=== PATIENT | female | born 2000 | race Caucasian/White ===

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

== ENCOUNTER 2021-09-16 19:51 | Emergency (ER) | payer OTHER ==
[~2021-09-16] VITALS: Ht 152.4 cm; Wt 64.0 kg
[2021-09-16] MEDS ORDERED: ATOMOXETINE HCL40 MG PO (20:28)
== END 2021-09-16 21:39 | disposition home or self-care (01) ==
LOC: ED 19:51
DX: T65.891A Toxic effect of other specified substances, accidental (unintentional), initial encounter (principal); T26.91XA Corrosion of right eye and adnexa, part unspecified, initial encounter; Z88.8 Allergy status to other drugs, medicaments and biological substances; Z79.899 Other long term (current) drug therapy; Y93.E8 Activity, other personal hygiene
CPT/HCPCS: 99283

== ENCOUNTER 2021-12-29 14:34 | Emergency (ER) | payer OTHER ==
[~2021-12-29] VITALS: Ht 152.4 cm; Wt 64.0 kg
[~2021-12-29 14:34] MED LIST changes: +ATOMOXETINE HCL40 MG PO
[2021-12-29] MEDS ORDERED: AUGMENTIN 875-1 EACH PO (16:58)
[2021-12-29] MEDS ORDERED: HYDROCODON-ACE1 EAC8 PO (16:58)
[2021-12-29] MEDS ORDERED: PREDNISONE20 MG PO (16:58)
== END 2021-12-29 17:23 | disposition home or self-care (01) ==
LOC: ED 14:34
DX: J03.90 Acute tonsillitis, unspecified (principal); Z88.8 Allergy status to other drugs, medicaments and biological substances; Z79.899 Other long term (current) drug therapy
CPT/HCPCS: 36415; 80048; 85025; 96365; 96375; 99283-25; J0696; J1100; J1885; J7030

== ENCOUNTER 2022-02-26 05:55 | Day surgery (SDC) | payer OTHER ==
--- NOTE | 2022-02-24 11:24 | NUR ---
PT WAS TOLD THAT SHE DID NOT NEED TO COME AND COMPLETE A PRE-ADMIT APPOINTMENT DUE TO SHE HAD LABS COMPLETED ON 02-23-22. PT WAS WORKING WHEN CALLED.
[~2022-02-26] VITALS: Ht 152.4 cm; Wt 64.0 kg
[~2022-02-26 05:55] MED LIST changes: +AUGMENTIN 875-1 EACH PO; +HYDROCODON-ACE1 EAC8 PO; +PREDNISONE20 MG PO; +STRATTERA10 MG PO
--- NOTE | 2022-02-26 06:24 | NUR ---
DR MORRIS CALLED FOR TEMP 100.5 ENLARGED TONSILS WITH APPEARANCE OF PUS ON LEFT ONE. STATES OK TO PROCEED AND ORDERED ABX PREOP SEE ORDER.
--- NOTE | 2022-02-26 08:24 | NUR ---
02/26/22 0824 Carrie Prescott 0813- PT ARRIVES TO PACU COUGHING FREQUENTLY. PT REACTIVE TO STIMULI. PT UPDATED THAT HER SURGERY IS OVER. PT CONTINUES TO COUGH. LUNG ASHER ARE CLEAR THROUGHOUT. OXYGEN SAT HIGH 90'S TO 100% ON 6L VIA MASK. PT LAYING ON HER RIGHT SIDE. 0818- OXYGEN TITRATED OFF.
--- NOTE | 2022-02-26 08:50 | NUR ---
PATIENT REPORT RECIEVED FROM LORENA CORDOVA. PATIENT BACK FROM PACU. PATIENT ASSESSMENT COMPLETE. VITAL SIGNS WNL AND DOCUMENTED. BREATHING EQUAL AND UNLABORED. NO SIGNS OF BLEEDING AT SURGICAL SITE. PATIENT COMPLAINS OF 4/10 PAIN DENIES THE NEED FOR PAIN MEDICATION. PATIENT IS DRINKING WATER, EATING PUDDING AND SITTING UP IN BED. MOTHER AT BEDSIDE. CALL LIGHT WITHIN REACH NO FUTHER NEEDS AND NO QUESTIONS AT THIS TIME.
--- NOTE | 2022-02-26 09:39 | NUR ---
PATIENT ASSESSMENT COMPLETE. PATIENT IS ALERT AND ORIENTED. BREATHING EQUAL AND UNLABORED. VITAL SIGNS WNL AND DOCUMENTED. PATIENT COMPLAINS OF 4/10 PAIN THROBBING AT SURGICAL SITE. PRN ELIXIR GIVEN 15 MLS. NO BLEEDING AT SURGICAL SITE. PATIENT DRINKING WATER. EATING PUDDING AND WAS ABLE TO VOID. NO QUESTIONS. CALL LIGHT WITHIN REACH NO FUTHER NEEDS. MOTHER PRESENT IN ROOM.
--- NOTE | 2022-02-26 09:55 | NUR ---
PATIENT MET DISCHARGE CRITERIA. PATIENT WAS ABLE TO DRESS SELF AND AMBULATE WELL. IV DISCHARGED WNL. PATIENT STATED PAIN MEDICATION ALREADY TAKEN TO PHARMACY. OTHER PERSCRIPTION GIVEN TO MOTHER. PATIENT WAS WHEELED OUT OF FACILITY TO MOTHERS CAR.
--- NOTE | 2022-02-26 11:27 | OR ---
[facility] [address] [place], [place] [address] Signed DATE OF OPERATION: 02/26/2022 SURGEON: Ariel Smiley MD PREOPERATIVE DIAGNOSES: Chronic tonsillitis, tonsillith and recurrent acute tonsillitis. POSTOPERATIVE DIAGNOSES: Chronic tonsillitis, tonsillith and recurrent acute tonsillitis. PROCEDURE: Tonsillectomy greater than 12 years of age. INDICATIONS: This 21-year-old female for 10 years or more, has had a problem with tonsil stones or tonsillith which formed causing pain, some discomfort, lymphadenitis and halitosis. The patient also has acute tonsillitis characterized by fever and prostration and sore throat. On examination, the patient had 4+ tonsillar hypertrophy. The medical history was consistent with the physical exam. The tonsil stones were lifelong problem, not treatable with antibiotics alone, hence the need for the procedure. PROCEDURE IN DETAIL: The patient was placed in the supine position, had an orotracheal intubation, was placed under general anesthesia. The McIvor mouth gag was inserted in the oral cavity exposing the right tonsil. It was noted she had exudate on the left tonsil and the tonsils were tightly pressed against each other. With a Bovie cautery unit, the tonsillectomy was performed. The setting was on 25 for cautery. A subcapsular dissection was done with the tip of the cautery using short bursts of energy and all was going from inferior to superior, allowing for adequate thermal relaxation. It was pretty much a bloodless dissection except one small bleeder which was readily cauterized. Bismuth was placed into the tonsillar fossa to help with postop hemostasis and about 3.5 mL of 0.25% Marcaine 1:200,000 epinephrine were injected into the peritonsillar region to help with postop pain. Intravascular injection was avoided. Mouth gag was removed for at least 60 seconds, reinserted at this time exposing the left tonsil. It was removed in similar fashion. More Bismuth and another 4 mL of Marcaine were injected and the patient was awakened, extubated and sent to recovery room in good condition. ESTIMATED BLOOD LOSS: Less than 5 mL. Electronically Signed By: ARIEL SMILEY MD 02/26/22 1127 PATIENT NAME: FITO HERNANDEZ OPERATIVE REPORT DATE OF : 99 REPORT #: [id number] PHYSICIAN: ARIEL SMILEY MD PCP: FREDRICK MADRID PA-C REPORT IS CONFIDENTIAL AND NOT TO BE RELEASED WITHOUT AUTHORIZATION [facility] [address] [place], [place] [address] Signed There were no complications. The patient will be placed on antibiotics now in the hospital and at home. MD TOSHA Morfin/JEY /[id number] Copies: ~ Electronically Signed By: ARIEL SMILEY MD 02/26/22 1127 PATIENT NAME: FITO HERNANDEZ OPERATIVE REPORT DATE OF : 99 REPORT #: [id number] PHYSICIAN: ARIEL SMILEY MD PCP: FREDRICK MADRID PA-C REPORT IS CONFIDENTIAL AND NOT TO BE RELEASED WITHOUT AUTHORIZATION
--- NOTE | 2022-03-02 13:36 | PATH ---
[facility] [address] [place], [place] [address] Signed SPECIMEN(S): A RIGHT TONSIL SPECIMEN(S): B LEFT TONSIL SPECIMEN SOURCE: A. RIGHT TONSIL B. LEFT TONSIL CLINICAL HISTORY: Chronic tonsillitis. Tonsillectomy. FINAL PATHOLOGIC DIAGNOSIS: A. Tonsil, right, tonsillectomy: - Reactive follicular lymphoid hyperplasia. B. Tonsil, left, tonsillectomy: - Reactive follicular lymphoid hyperplasia. NAL:cml:C2NR MICROSCOPIC EXAMINATION: Histologic sections of all submitted blocks are examined by light microscopy. These findings, together with the gross examination, support the pathologic diagnosis. GROSS DESCRIPTION: The specimen, labeled "Luiza," is received in formalin and consists of two pink-mart tonsils (left: 4.2 x 3.2 x 2.6 cm, right: 4.6 x 2.7 x 2.7 cm). The right tonsil is inked blue and both tonsils are serially sectioned to reveal a pink-mart to slightly hemorrhagic and convoluted cut surface. Geophysical Computer sections of each tonsil are submitted in cassette (A1). KD (under the direct supervision of a pathologist) The Gross Description was prepared using a voice recognition system. The report was reviewed for accuracy; however, sound-alike word errors, addition and/or deletions may occur. If there is any question about this report, please contact Client Services. PERFORMING LABORATORY: The technical component was performed by [employer], [address] [place] [id number] (Hospital Ward Clerk: Monica Jones MD; CLIA# [id number]). [facility] [address] [address] (CLIA# [id number]). PATIENT NAME: FITO HERNANDEZ PATHOLOGY DATE OF : 99 REPORT #: [id number] PHYSICIAN: [facility] PCP: FREDRICK MADRID PA-C REPORT IS CONFIDENTIAL AND NOT TO BE RELEASED WITHOUT AUTHORIZATION [address] [place] [address] Signed Diagnostician: Mira Arias MD Pathologist Electronically Signed 03/02/2022 Copies: ~ PATIENT NAME: FITO HERNANDEZ PATHOLOGY DATE OF : 99 REPORT #: [id number] PHYSICIAN: [facility] PCP: FREDRICK MADRID PA-C REPORT IS CONFIDENTIAL AND NOT TO BE RELEASED WITHOUT AUTHORIZATION
== END 2022-02-26 09:55 | disposition home or self-care (01) ==
LOC: DS 05:55 → OPS 05:55 → DS 07:30 → OPS 09:55
PROVIDERS: ATTEND Otolaryngology
PROC: 0CTPXZZ Resection of Tonsils, External Approach (ICD-10-PCS; principal; 2022-02-26 07:30)
DX: J03.91 Acute recurrent tonsillitis, unspecified (principal); J35.01 Chronic tonsillitis; Z88.1 Allergy status to other antibiotic agents
CPT/HCPCS: 00170; 84703; A9270; J0131; J1100; J2405; J2704; J3010; J7121

== ENCOUNTER 2023-07-02 00:02 | Inpatient (IN) | payer OTHER ==
[~2023-07-02] VITALS: Ht 157.5 cm; Wt 94.3 kg
--- OUTSIDE RECORDS SUMMARY | ~2023-07-02 | XMS | Continuity of Care Document ---
Demographics + + + | Address | [address] | | | [place] [address] | + + + | Preferred Language | Unknown | + + + | Marital Status | Never | + + + | Buddhism Affiliation | Unknown | + + + | Race | White | + + + | Ethnic Group | Unknown | + + + Author + + + | Author | [facility] | + + + | Organization | [facility] | + + + | Address | [address] | | | [place] [address] | + + + | Phone | | + + + Care Team Providers + + + + | Care Import Export Coordinator Name | Role | Phone | + + + + Unavailable | Unavailable | + + + + Allergies and Intolerances + + + + + + | date | description | facility | reaction | severity | + + + + + + | (no date) | oxybutynin | [facility] | (no reaction) | (no severity) | + + + + + + | (no date) | ertapenem | [facility] | (no reaction) | (no severity) | + + + + + + Encounters No information. Functional Status No information. Immunizations No information. Medications No information. Problems + + + + | date | description | facility | + + + + | 2021-12-29 14:35 | ACUTE PHARYNGITIS, | [facility] | | | UNSPECIFIED | | + + + + | 2021-12-29 14:35 | ACUTE TONSILLITIS, | [facility] | | | UNSPECIFIED | | + + + + | 2021-12-29 14:35 | OTHER [facility] (CURRENT) | [facility] | | | DRUG THERAPY | | + + + + | 2021-12-29 14:35 | ALLERGY STATUS TO OTH | [facility] | | | DRUG/MEDS/BIOL SUBST STATUS | | | | | | + + + + | 2022-11-05 12:52 | ENCOUNTER FOR SUPRVSN OF | [facility] | | | NORMAL , FIRST | | | | TRIMESTER | | + + + + | 2022-11-05 12:52 | LESS THAN 8 WEEKS | [facility] | | | GESTATION OF | | + + + + | 2023-01-15 11:00 | PERSONS ENCOUNTERING | [facility] | | | HEALTH SERVICES IN | | + + + + | 2023-02-10 09:47 | CONTACT W AND EXPOSURE TO | [facility] | | | INFECT W A SEXL MODE OF | | | | TRANSMISS | | + + + + | 2023-02-10 09:47 | PERSONS ENCOUNTERING | [facility] | | | HEALTH SERVICES IN | | + + + + | 2023-03-15 10:32 | CARDIAC ARRHYTHMIA, | [facility] | | | UNSPECIFIED | | + + + + | 2023-03-15 10:32 | DISEASES OF THE CIRC SYS | [facility] | | | COMP , SECOND TR | | + + + + | 2023-03-15 10:32 | Syncope and collapse | [facility] | + + + + | 2023-04-03 13:50 | ENCNTR FOR SUPRVSN OF | [facility] | | | NORMAL , UNSP, | | | | UNSP TRIMESTER | | + + + + | 2023-04-03 13:50 | ENCNTR FOR SUPRVSN OF | [facility] | | | NORMAL PREG, UNSP, THIRD | | | | TRI | | + + + + | 2023-04-03 13:50 | 29 WEEKS GESTATION OF | [facility] | | | | | + + + + | 2023-05-03 13:45 | UNSPECIFIED MATERNAL | [facility] | | | HYPERTENSION, THIRD | | | | TRIMESTER | | + + + + | 2023-05-03 13:45 | UNSPECIFIED MATERNAL | [facility] | | | HYPERTENSION, UNSPECIFIED | | | | TRIMESTER | | + + + + | 2023-05-03 13:45 | 32 WEEKS GESTATION OF | [facility] | | | | | + + + + | 2023-05-05 15:31 | UNSPECIFIED MATERNAL | [facility] | | | HYPERTENSION, THIRD | | | | TRIMESTER | | + + + + | 2023-05-05 15:31 | UNSPECIFIED MATERNAL | [facility] | | | HYPERTENSION, UNSPECIFIED | | | | TRIMESTER | | + + + + | 2023-05-05 15:31 | 32 WEEKS GESTATION OF | [facility] | | | | | + + + + | 2023-05-27 19:46 | FALSE LABOR BEFORE 37 | [facility] | | | COMPLETED WEEKS OF GEST, | | | | THIRD TRI | | + + + + | 2023-05-27 19:46 | 35 WEEKS GESTATION OF | [facility] | | | | | + + + + | 2023-06-17 16:42 | ENCNTR FOR SUPRVSN OF | [facility] | | | NORMAL PREG, UNSP, THIRD | | | | TRIMESTER | | + + + + | 2023-06-17 16:42 | 38 WEEKS GESTATION OF | [facility] | | | | | + + + + | 2023-06-21 11:11 | MATERN CARE FOR ABNLT FETL | [facility] | | | HRT RATE OR RHYM, 3RD T | | + + + + | 2023-06-21 11:11 | NAUSEA WITH VOMITING, | [facility] | | | UNSPECIFIED | | + + + + | 2023-06-21 11:11 | DIARRHEA, UNSPECIFIED | [facility] | + + + + | 2023-06-21 11:11 | 39 WEEKS GESTATION OF | [facility] | | | | | + + + + | 2023-06-24 16:51 | UNSPECIFIED MATERNAL | [facility] | | | HYPERTENSION, THIRD | | | | TRIMESTER | | + + + + | 2023-06-24 16:51 | 39 WEEKS GESTATION OF | [facility] | | | | | + + + + Procedures No information. Results/Labs No information. Social History No information. Vital Signs No information."
[2023-07-02 06:58] VITALS: BP 128/64
--- NOTE | 2023-07-02 12:25 | PR ---
[facility] [address] [facility] [place], [place] [address] Signed Progress Notes IP Datetime Report Generated by CPN: 07/02/2023 12:25 PROGRESS NOTES: [id number] Impression: Normal Progression of Labor; Reassuring Heart Rate Plan: Continue Present Management; Anesthesia Consult VITAL SIGNS: [id number] Vital Signs: Reviewed; Within Normal Limits EXAM: [id number] Dilatation: 5.0 Effacement: 90 Station: -2 Contractions: q1-4 min by palpation, tracing poorly MEMBRANES: [id number] Membranes Status: Intact Comments: Anesthesia replacing epidural. Anticipate AROM once comfortable with epidural. FETUS A: [id number] FHR Baseline: 135 Variability: Moderate 6-25bpm Accelerations: 15X15 Decelerations: None FHR Category: Category I Presentation: Vertex Comments on Fetus A: No evidence of acidemia FETUS B: [id number] Signing Physician: Suzanne Henley DO Copies: ~ *Electronically Signed* 07/02/23 1225 SUZANNE HENLEY DO PATIENT NAME: FITO HERNANDEZ PROGRESS NOTE DATE OF : 99 PHYSICIAN: SUZANNE HENLEY DO RPT #: [id number] REPORT IS CONFIDENTIAL AND NOT TO BE RELEASED WITHOUT AUTHORIZATION
--- NOTE | 2023-07-03 09:10 | PR ---
[facility] [address] [facility] [place], [place] [address] Signed PP Progress Notes Datetime Report Generated by CPN: 07/03/2023 09:09 SUBJECTIVE: [id number] Pain: Within Normal Limits Nausea/Vomiting: Denies Vital Signs: [id number] Vital Signs: Reviewed Notable Details: intermittent elevated BP, generally borderline hypotensive Cardiovascular: Normal Respiratory: Normal Abdomen/Uterus: Normal Lochia: Normal Extremities: Normal Progress: Not Applicable Exam Comments: NAD, sitting up in bed holding baby RRR No dyspnea/ retractions Abd SNTND, FFBU Ext with trace edema, neg Zahira's BL IMPRESSION/PLAN/PROCEDURES: [id number] Impression: Normal Progression Plan: Continue Present Management Procedures: None Progress Notes: PPD#1 s/p complicated by prolonged second stage -progressing well : ambulating, voiding, tolerating regular diet, pain well controlled with orals, lochia light. -anticipate DC to home tomorrow -bottlefeeding baby, planning IUD for contraception Signing Physician: Suzanne Henley DO Copies: ~ *Electronically Signed* 07/03/23908 SUZANNE HENLEY DO PATIENT NAME: FITO HERNANDEZ PROGRESS NOTE DATE OF : 99 PHYSICIAN: SUZANNE HENLEY #: [id number] REPORT IS CONFIDENTIAL AND NOT TO BE RELEASED WITHOUT AUTHORIZATION
--- NOTE | 2023-07-04 07:16 | PR ---
[facility] [address] [facility] [place], [place] [address] Signed PP Progress Notes Datetime Report Generated by CPN: 07/04/2023 07:16 SUBJECTIVE: [id number] Pain: Within Normal Limits Nausea/Vomiting: Denies Flatus: Yes Bowel Movement: No Vital Signs: [id number] Vital Signs: Reviewed Notable Details: intermittent elevated BP, generally borderline hypotensive Cardiovascular: Normal Respiratory: Normal Abdomen/Uterus: Normal Lochia: Normal Breasts: Normal Extremities: Normal Progress: Not Applicable Exam Comments: NAD sitting up in bed RRR No dyspnea/ retractions Abd SNTND FFBU Ext: 1+ BLLE pitting edema, neg Zahira's BL IMPRESSION/PLAN/PROCEDURES: [id number] Impression: Normal Progression Plan: Continue Present Management; Discharge Procedures: None Progress Notes: PPD#2 s/p -progressing well : ambulating, voiding, tolerating regular diet. +Flatus, no BM yet, lochia light -bottlefeeding baby, planning IUD for contraception -denies headaches, vision changes, RUQ pain -recheck BP prior to DC - if elevated, PreE labs prior to DC. Anticipate DC to home today pending BP control Signing Physician: Suzanne Henley DO Copies: *Electronically Signed* 07/04/23 0716 SUZANNE HENLEY DO PATIENT NAME: FITO HERNANDEZ PROGRESS NOTE DATE OF : 99 PHYSICIAN: SUZANNE HENLEY DO RPT #: [id number] REPORT IS CONFIDENTIAL AND NOT TO BE RELEASED WITHOUT AUTHORIZATION [address], [place] [address] Signed ~ *Electronically Signed* 07/04/23 07 SUZANNE HENLEY DO PATIENT NAME: FITO HERNANDEZ PROGRESS NOTE DATE OF : 99 PHYSICIAN: SUZANNE HENLEY DO RPT #: [id number] REPORT IS CONFIDENTIAL AND NOT TO BE RELEASED WITHOUT AUTHORIZATION
== END 2023-07-04 11:55 | disposition home or self-care (01) | DRG 807 ==
LOC: FBC 00:02
PROVIDERS: ADMIT Obstetrics & Gynecology; ATTEND Obstetrics & Gynecology
PROC: 10907ZC Drainage of Amniotic Fluid, Therapeutic from Products of Conception, Via Natural or Artificial Opening (ICD-10-PCS; principal; 2023-07-02)
PROC: 10E0XZZ Delivery of Products of Conception, External Approach (ICD-10-PCS; 2023-07-02)
PROC: 0KQM0ZZ Repair Perineum Muscle, Open Approach (ICD-10-PCS; 2023-07-02)
PROC: 00HU33Z Insertion of Infusion Device into Spinal Canal, Percutaneous Approach (ICD-10-PCS; 2023-07-02)
PROC: 3E0R3BZ Introduction of Anesthetic Agent into Spinal Canal, Percutaneous Approach (ICD-10-PCS; 2023-07-02)
PROC: 3E0P7VZ Introduction of Hormone into Female Reproductive, Via Natural or Artificial Opening (ICD-10-PCS; 2023-07-02)
DX: O48.0 Post-term pregnancy (principal); Z37.0 Single live birth; Z67.10 Type A blood, Rh positive; O99.344 Other mental disorders complicating childbirth; F90.9 Attention-deficit hyperactivity disorder, unspecified type; F43.10 Post-traumatic stress disorder, unspecified; O70.1 Second degree perineal laceration during delivery; Z3A.40 40 weeks gestation of pregnancy; Z87.891 Personal history of nicotine dependence; Z90.89 Acquired absence of other organs; Z88.1 Allergy status to other antibiotic agents; Z79.899 Other long term (current) drug therapy
CPT/HCPCS: 36415; 80053; 83615; 84550; 85027; 86850; 86900; 86901; A9270; J2405; J2590; J2795

== ENCOUNTER 2024-11-02 19:25 | Emergency (ER) | payer OTHER ==
[~2024-11-02] VITALS: Ht 152.4 cm; Wt 62.7 kg
[2024-11-02] MEDS ORDERED: FLUOXETINE HCL20 MG PO (20:21)
[2024-11-02] MEDS ORDERED: DEXTROAMP-AMPHE10 MG PO (20:21)
[2024-11-02] MEDS ORDERED: LACTULOSE10 GM/152 PO (20:39)
[2024-11-02] MEDS ORDERED: MAGNESIUM CITRATE 300 ML BTL PO ONE (20:45)
[2024-11-02] MEDS ORDERED: LACTULOSE 20 GM/30 ML CUP PO ONE (20:45)
[2024-11-02 20:54] VITALS: BP 135/77
== END 2024-11-02 20:58 | disposition home or self-care (01) ==
LOC: ED 19:25
DX: K59.00 Constipation, unspecified (principal); Z88.8 Allergy status to other drugs, medicaments and biological substances; Z79.899 Other long term (current) drug therapy
CPT/HCPCS: 74018; 84703; 99284